=== PATIENT | female | born 2000 | race Two or more races ===

== ENCOUNTER 2022-05-17 12:11 | Emergency (ER) | payer OTHER ==
[~2022-05-17] VITALS: Ht 154.9 cm; Wt 53.5 kg
== END 2022-05-17 19:48 | disposition home or self-care (01) ==
LOC: EDBD 12:11 → ER 12:11
DX: R10.2 Pelvic and perineal pain (principal); R10.9 Unspecified abdominal pain

== ENCOUNTER 2022-08-31 08:58 | Emergency (ER) | payer OTHER ==
[~2022-08-31] VITALS: Ht 154.9 cm; Wt 52.6 kg
== END 2022-08-31 12:12 | disposition home or self-care (01) ==
LOC: ER 08:58
DX: N30.00 Acute cystitis without hematuria (principal)

== ENCOUNTER 2022-11-21 12:05 | Inpatient (IN) | payer OTHER ==
[~2022-11-21] VITALS: Ht 154.9 cm; Wt 52.2 kg
--- NOTE | 2022-11-21 13:04 | NUR ---
PTE REFIERE DOLOR FUETE ABDOMINAL; Y VOMITOS. SE ACOMODA EN MADAI.
--- NOTE | 2022-11-21 14:15 | NUR ---
SE REALIZAN MEUSTRAS DE LEONA A PACIENTE POR ORDEN MEDICA. SE ENVIANA LABORATORIO.
== END 2022-11-24 19:12 | disposition home or self-care (01) | DRG 641 ==
LOC: ER 12:05 → SEC-K 11-22 10:11 → MEDJ 11-22 10:11
PROVIDERS: ADMIT Internal Medicine; ATTEND Internal Medicine
PROC: BW40ZZZ Ultrasonography of Abdomen (ICD-10-PCS; principal; 2022-11-21)
PROC: B020ZZZ Computerized Tomography (CT Scan) of Brain (ICD-10-PCS; 2022-11-21)
PROC: BW21Y0Z Computerized Tomography (CT Scan) of Abdomen and Pelvis using Other Contrast, Unenhanced and Enhanced (ICD-10-PCS; 2022-11-22)
PROC: BU4CZZZ Ultrasonography of Uterus and Ovaries (ICD-10-PCS; 2022-11-23)
DX: E87.6 Hypokalemia (principal); K90.49 Malabsorption due to intolerance, not elsewhere classified; E86.0 Dehydration; K52.9 Noninfective gastroenteritis and colitis, unspecified; R10.2 Pelvic and perineal pain; Z20.822 Contact with and (suspected) exposure to COVID-19

== ENCOUNTER 2023-01-13 07:12 | Inpatient (IN) | payer OTHER ==
[~2023-01-13] VITALS: Ht 152.4 cm; Wt 50.3 kg
--- NOTE | 2023-01-13 07:30 | NUR ---
PTE REFIERE VOMITOS DESDE CATARINA. Y MALESTAR EPIGASTRICO. SE ACOMODA EN AREA DE OBSERVACION.
--- NOTE | 2023-01-13 08:21 | NUR ---
PACIENTE ALERTA Y ORIENTADA X3. MANEJADA POR . BERRIOS QUIEN ORIENTA A PACIENTE SOBRE TX Y PROCEDIMIENTO A REALIZAR Y REFIRIO ENTENDER. REALIZA MUESTRAS DE LABORATPRIO BAJO MEDIDAS ASEPTICAS. CANALZIACION PATENTE Y NICHOLAS DE EDEMA Y ERITEMA. ADMINISTRA MEDICAMENTOS ORDENADOS POR MD. SE MANTIENE BAJO OBSERVACION POR CAMBIOS SIGNIFICATIVOS.
--- NOTE | 2023-01-13 14:05 | NUR ---
SE REALIZA ADMINISTRACION DE MEDEICAMENTOS POR ORDEN MEDICA.
== END 2023-01-18 13:48 | disposition home or self-care (01) | DRG 357 ==
LOC: ER 07:12 → MEDJ 19:48
PROVIDERS: Surgery; ADMIT Internal Medicine; ATTEND Internal Medicine
PROC: CF1C1ZZ Planar Nuclear Medicine Imaging of Hepatobiliary System, All using Technetium 99m (Tc-99m) (ICD-10-PCS; 2023-01-13)
PROC: BW21YZZ Computerized Tomography (CT Scan) of Abdomen and Pelvis using Other Contrast (ICD-10-PCS; 2023-01-13)
PROC: 0FT44ZZ Resection of Gallbladder, Percutaneous Endoscopic Approach (ICD-10-PCS; principal; 2023-01-16 10:00)
DX: K29.00 Acute gastritis without bleeding (principal); B37.49 Other urogenital candidiasis; D72.829 Elevated white blood cell count, unspecified; F12.21 Cannabis dependence, in remission